=== PATIENT | male | born 1980 | race Caucasian/White ===

== ENCOUNTER → 2023-11-24 08:42 | Outpatient (REF) | payer OTHER, SELFPAY | LOC: HWRAD 08:42 | PROVIDERS: ATTENDING PHYSICIAN Otolaryngology; FAMILY PHYSICIAN Internal Medicine | DX: J32.0 Chronic maxillary sinusitis (principal); R09.81 Nasal congestion | CPT/HCPCS: 70486 ==

== ENCOUNTER → 2024-07-13 07:56 | Outpatient (REF) | payer OTHER, SELFPAY | LOC: RAD 07:56 | PROVIDERS: ATTENDING PHYSICIAN Otolaryngology; FAMILY PHYSICIAN Internal Medicine | DX: J32.0 Chronic maxillary sinusitis (principal); J34.2 Deviated nasal septum; R09.81 Nasal congestion | CPT/HCPCS: 93005 ==